=== PATIENT | male | born 1945 | race Caucasian/White ===

== ENCOUNTER 2018-07-19 09:54 | Day surgery (SDC) | payer MEDICARE, OTHER ==
[2018-07-19] MEDS ORDERED: LACTATED RINGERS 1,000 ML IV ONE (10:20)
[2018-07-19] MEDS ORDERED: LIDO GARGLE 30 ML BOTTLE ONE (11:27)
[2018-07-19] MEDS ORDERED: fentaNYL 250 MCG/5 ML VIAL IVP ONE (11:30)
[2018-07-19] MEDS ORDERED: MIDAZOLAM 2 MG/2 ML VIAL IVP ONE (11:30)
[2018-07-19] MEDS ORDERED: BENZOCAINE/TETRACAINE/BUTAMBEN 20 GM MM ONE (11:55)
[2018-07-19] MEDS ORDERED: LIDO GARGLE 30 ML BOTTLE PO ONE (11:55)
--- NOTE | 2018-07-19 12:46 | ANESTHESIA ---
Pre-Anesthesia VS, & Labs - Diagnosis gi bleed - Procedure egd, colonoscopy Vital Signs: Temp Pulse Resp BP Pulse Ox 37.4 C 80 14 106/74 97 07/19/18 12:31 07/19/18 12:31 07/19/18 12:31 07/19/18 12:31 07/19/18 12:31 Height 5 ft 4 in Weight (kg) 69.7 kg - NPO >8 hours Home Medications and Allergies Home Medications: Ambulatory Orders Aspirin 1 DAILY PM 07/19/18 Aspirin 1 DAILY PM 07/19/18 Allergies/Adverse Reactions: Allergies Allergy/AdvReac Type Severity Reaction Status Date / Time adhesive tape AdvReac Rash Verified 07/18/18 13:21 nabumetone [From Relafen] AdvReac Unknown Verified 07/18/18 13:20 Anes History & Medical History - Anesthetic History Anesthesia Complications: reports: No previous complications Family history of Anesthesia Complications: Denies Family history of Malignant Hyperthermia: Denies - Medical History Cardiovascular: reports: Other Pulmonary: reports: None Gastrointestinal: reports: None Urinary: reports: None Musculoskeletal: reports: Other Endocrine/Autoimmune: reports: None - Surgical History General: Colonoscopy, EGD Exam General: No acute distress Dental: WNL Mouth Openin Fingerbreadth Neck Mobility: Normal Mallampati classification: II Thyromental Distance: greater than 6 cm Respiratory: Lungs clear Cardiovascular: Other (irregular) Plan Anesthesia Type: MAC Consent for Procedure(s) Verified and Reviewed: Yes Code Status: Attempt Resuscitation ASA classification: 2-Mild systemic disease Is this case an emergency?: No
[2018-07-19 13:51] VITALS: BP 129/98
== END 2018-07-19 09:55 | disposition home or self-care (01) ==
LOC: SDS 09:54
PROVIDERS: ATTEND Surgery
PROC: 0DJD8ZZ Inspection of Lower Intestinal Tract, Via Natural or Artificial Opening Endoscopic (ICD-10-PCS; 2018-07-19)
PROC: 0DB98ZX Excision of Duodenum, Via Natural or Artificial Opening Endoscopic, Diagnostic (ICD-10-PCS; principal; 2018-07-19 11:30)
PROC: 0DB68ZX Excision of Stomach, Via Natural or Artificial Opening Endoscopic, Diagnostic (ICD-10-PCS; 2018-07-19 11:30)
DX: K29.50 Unspecified chronic gastritis without bleeding (principal); I49.9 Cardiac arrhythmia, unspecified; Z79.82 Long term (current) use of aspirin; Z80.0 Family history of malignant neoplasm of digestive organs; Z87.891 Personal history of nicotine dependence
CPT/HCPCS: 43239; 45378; 87081; A9270; J3010; J7120

== ENCOUNTER 2018-08-02 08:47 | Outpatient (CLI) | payer MEDICARE, OTHER | END 2018-08-02 08:48 | disposition home or self-care (01) | LOC: DI 08:47 | PROVIDERS: ATTEND Internal Medicine | DX: I49.3 Ventricular premature depolarization (principal); I34.0 Nonrheumatic mitral (valve) insufficiency | CPT/HCPCS: 93306 ==

== ENCOUNTER 2021-03-31 11:31 | Outpatient (CLI) | payer MEDICARE, OTHER ==
[2021-03-31 16:37] LABS: CALCIUM 9.3 mg/dL (8.5-10.3); CREATININE 1.1 mg/dL (0.6-1.2); POTASSIUM 3.9 mmol/L (3.5-5.0)
[2021-03-31 21:15] LABS: ESTIMATED AVERAGE GLUCOSE 134 mg/dL (70-100); HEMOGLOBIN A1c% 6.3 % (4.27-6.07)
== END 2021-03-31 23:59 | disposition home or self-care (01) ==
LOC: LAB.R 11:31
PROVIDERS: ATTEND Internal Medicine
DX: E11.9 Type 2 diabetes mellitus without complications (principal)
CPT/HCPCS: 80048; 83036

== ENCOUNTER 2021-06-02 16:15 | Emergency (ER) | payer MEDICARE, OTHER ==
[2021-06-02] MEDS ORDERED: ATROPINE ABBOJECT 0.5 MG/5 ML SYRINGE IVP STA (16:38)
[2021-06-02] MEDS ORDERED: ATROPINE ABBOJECT 1 MG/10 ML SYRINGE IVP STA (16:40)
--- NOTE | 2021-06-02 16:40 | ED Physician Documentation ---
History of Present Illness - Stated complaint Stated Complaint: LOW PULSE - Chief complaint Chief Complaint: Cardiac - History obtained from History obtained from: Patient, Family - History of Present Illness Timing: Today Pain level max: 0 Pain level now: 0 - Additonal information Additional information: Patient is a 76-year-old male who comes into the emergency department complaining of a low heart rate. This been ongoing intermittently for several weeks, but worsening. He had been on metoprolol and amiodarone for ventricular tachycardia. Initially they stopped the metoprolol and he felt like this improved his heart rate, his amiodarone has also been cut from 400 mg to 200 mg. He occasionally has palpitations in his chest, no chest pain. No shortness of breath. No syncope. Nothing makes it better or worse. Occasionally will feel lightheaded. Currently is feeling well. Review of Systems Ten Systems: 10 systems reviewed and negative Constitutional: denies: Fever, Chills Nose: denies: Rhinorrhea / runny nose, Congestion Throat: denies: Sore throat Respiratory: denies: Cough GI: denies: Nausea, Vomiting, Diarrhea Skin: denies: Rash Musculoskeletal: denies: Neck pain, Back pain Neurologic: denies: Headache PD PAST MEDICAL HISTORY - Past Medical History Past Medical History: Yes Cardiovascular: Other Respiratory: None Endocrine/Autoimmune: None GI: None : None HEENT: None Psych: None Musculoskeletal: Other - Past Surgical History Past Surgical History: Yes General: Colonoscopy, EGD - Present Medications Home Medications: Ambulatory Orders Medication Instructions Recorded Confirmed Amiodarone [Pacerone] 400 mg PO DAILY 06/02/21 06/02/21 Aspirin Chewable [St Enzo 81 mg PO DAILY 06/02/21 06/02/21 Aspirin] Atorvastatin Calcium 40 mg PO HS 06/02/21 06/02/21 Fenofibrate Nanocrystallized 1 cap PO DAILY 06/02/21 06/02/21 [Tricor] - Allergies Allergies/Adverse Reactions: Allergies Allergy/AdvReac Type Severity Reaction Status Date / Time adhesive tape AdvReac Rash Verified 06/02/21 16:31 nabumetone [From Relafen] AdvReac Unknown Verified 06/02/21 16:31 - Social History Does the pt smoke?: No Smoking Status: Never smoker PD ED PE NORMAL - Vitals Vital signs reviewed: Yes - General General: Alert and oriented X 3, No acute distress - HEENT HEENT: Moist mucous membranes - Neck Neck: Supple, no meningeal sign, No JVD, No bruit - Cardiac Cardiac: No murmur, Other (Irregular) - Respiratory Respiratory: No respiratory distress, Clear bilaterally - Abdomen Abdomen: Soft, Non tender, Non distended - Back Back: No spinal TTP - Derm Derm: Warm and dry - Extremities Extremities: No edema - Neuro Neuro: Alert and oriented X 3 - Psych Psych: Normal mood, Normal affect Results - Vitals Vitals: Vital Signs - 24 hr 06/02/21 06/02/21 06/02/21 16:26 16:32 16:58 Temperature 36.9 C Heart Rate 36 L 47 L 53 L Respiratory 14 10 L 16 Rate Blood Pressure 159/74 H 144/83 H 144/83 H O2 Saturation 99 100 97 06/02/21 06/02/21 06/02/21 17:05 17:37 18:19 Temperature Heart Rate 51 L 47 L 47 L Respiratory 18 17 22 Rate Blood Pressure 119/80 123/71 110/66 O2 Saturation 97 95 97 06/02/21 06/02/21 06/02/21 18:43 19:00 19:30 Temperature Heart Rate 51 L 47 L 46 L Respiratory 13 15 16 Rate Blood Pressure 114/62 122/66 114/65 O2 Saturation 100 98 99 Oxygen O2 Source Room air - EKG (time done) 1624 Rate: Rate (enter#) (43) Rhythm: Other (junctional rhythm) Intervals: Prolonged QT QRS: Normal Ischemia: Non specific changes - Labs Labs: Laboratory Tests 06/02/21 06/02/21 06/02/21 16:23 16:23 16:23 WBC 5.4 RBC 4.94 Hgb 16.8 Hct 50.2 MCV 101.6 H MCH 34.0 H MCHC 33.5 RDW 13.5 Plt Count 164 MPV 9.4 Neut # (Auto) 3.4 Lymph # (Auto) 1.2 L York # (Auto) 0.6 Eos # (Auto) 0.1 Baso # (Auto) 0.0 Absolute Nucleated RBC 0.00 Nucleated RBC % 0.0 Sodium 139 Potassium 3.8 Chloride 101 Carbon Dioxide 27 Anion Gap 11.0 BUN 28 H Creatinine 1.2 Estimated GFR (MDRD) 59 L Glucose 134 H Calcium 9.3 Phosphorus 3.7 Magnesium 2.4 Total Bilirubin 0.8 AST 29 ALT 46 Alkaline Phosphatase 25 L Troponin I High Sens 6.9 Total Protein 6.6 L Albumin 4.3 Globulin 2.3 Albumin/Globulin Ratio 1.9 Lipase 40 Nasal Adenovirus (PCR) Nasal B. parapertussis DNA (PCR) Nasal Coronavir 229E PCR Nasal Coronavir HKU1 PCR Nasal Coronavir NL63 PCR Nasal Coronavir OC43 PCR Nasal Enterovir/Rhinovir PCR Nasal Influenza B PCR Nasal Influenza A PCR Nasal Parainfluen 1 PCR Nasal Parainfluen 2 PCR Nasal Parainfluen 3 PCR Nasal Parainfluen 4 PCR Nasal RSV (PCR) Nasal B.pertussis DNA PCR Nasal C.pneumoniae (PCR) Jordan Human Metapneumo PCR Nasal M.pneumoniae (PCR) Nasal SARS-CoV-2 (PCR) 06/02/21 16:53 WBC RBC Hgb Hct MCV MCH MCHC RDW Plt Count MPV Neut # (Auto) Lymph # (Auto) York # (Auto) Eos # (Auto) Baso # (Auto) Absolute Nucleated RBC Nucleated RBC % Sodium Potassium Chloride Carbon Dioxide Anion Gap BUN Creatinine Estimated GFR (MDRD) Glucose Calcium Phosphorus Magnesium Total Bilirubin AST ALT Alkaline Phosphatase Troponin I High Sens Total Protein Albumin Globulin Albumin/Globulin Ratio Lipase Nasal Adenovirus (PCR) NOT DETECTED Nasal B. parapertussis DNA (PCR) NOT DETECTED Nasal Coronavir 229E PCR NOT DETECTED Nasal Coronavir HKU1 PCR NOT DETECTED Nasal Coronavir NL63 PCR NOT DETECTED Nasal Coronavir OC43 PCR DETECTED A Nasal Enterovir/Rhinovir PCR NOT DETECTED Nasal Influenza B PCR NOT DETECTED Nasal Influenza A PCR NOT DETECTED Nasal Parainfluen 1 PCR NOT DETECTED Nasal Parainfluen 2 PCR NOT DETECTED Nasal Parainfluen 3 PCR NOT DETECTED Nasal Parainfluen 4 PCR NOT DETECTED Nasal RSV (PCR) NOT DETECTED Nasal B.pertussis DNA PCR NOT DETECTED Nasal C.pneumoniae (PCR) NOT DETECTED Jordan Human Metapneumo PCR NOT DETECTED Nasal M.pneumoniae (PCR) NOT DETECTED Nasal SARS-CoV-2 (PCR) NOT DETECTED - Rads (name of study) Chest x-ray Radiology: Final report received, EMP read contemporaneously, See rad report (No acute abnormality) PD MEDICAL DECISION MAKING - ED course Complexity details: reviewed results, re-evaluated patient, considered differential, d/w patient, d/w lead consultant ED course: Patient with a junctional bradycardia. Intermittently symptomatic. He did improve his heart rate with atropine, transient. He is hemodynamically stable. External pacer pads were applied. Discussed the case with Dr. Loving, cardiology at the [facility] at 1719, he states that they do not have any beds available for this patient and so cannot accept him. Recommend that we ca ll elsewhere. Discussed the case with Dr. Henderson, cardiology at [facility]. Spoke with him at approximately 1845. They do not have an EP clinical ob to do a pacemaker tomorrow. Recommend transfer. Discussed the case with Dr. Lancaster at 1925, cardiology at [facility] in [place] who recommends admission to the hospitalist and he will see the patient there. Discussed the case with Dr. Guzmán, hospitalist at 1940, graciously accepts in transfer. Patient continues to be hemodynamically stable here. COBRA forms completed. Patient will be transferred. This document was made in part using voice recognition software. While efforts are made to proofread this document, sound alike and grammatical errors may occur. Departure - Departure Disposition: 02 Transfer Acute Care Hosp Clinical Impression: Junctional bradycardia Condition: Stable
[2021-06-02 16:47] LABS: BASOPHILS % (AUTO) 0.7 %; EOSINOPHILS # (AUTO) 0.1 10^3/uL (0.0-0.7); EOSINOPHILS % (AUTO) 2.6 %; HCT - HEMATOCRIT 50.2 % (42.0-52.0); HGB - HEMOGLOBIN 16.8 g/dL (14.0-18.0); LYMPHOCYTES # (AUTO) 1.2 10^3/uL (1.5-3.5); LYMPHOCYTES % (AUTO) 22.2 %; MEAN CORPUSCULAR HGB CONC 33.5 g/dL (32.0-36.0); MEAN CORPUSCULAR VOLUME 101.6 fL (80.0-94.0); MEAN PLATELET VOLUME 9.4 fL (7.4-11.4); MONOCYTES # (AUTO) 0.6 10^3/uL (0.0-1.0); MONOCYTES % (AUTO) 10.7 %; NEUTROPHILS # (AUTO) 3.4 10^3/uL (1.5-6.6); NEUTROPHILS % (AUTO) 63.6 %; PLT - PLATELET COUNT 164 10^3/uL (130-450); RED BLOOD COUNT 4.94 10^6/uL (4.70-6.10); RED CELL DISTRIBUTION WIDTH 13.5 % (12.0-15.0); WHITE BLOOD COUNT 5.4 x10^3/uL (4.8-10.8)
[2021-06-02 16:57] LABS: ALBUMIN 4.3 g/dL (3.2-5.5); ALBUMIN/GLOBULIN RATIO 1.9 (1.0-2.2); BILIRUBIN,TOTAL 0.8 mg/dL (0.2-1.0); CALCIUM 9.3 mg/dL (8.5-10.3); CREATININE 1.2 mg/dL (0.6-1.2); MAGNESIUM 2.4 mg/dL (1.7-2.8); PHOSPHORUS 3.7 mg/dL (2.5-4.6); POTASSIUM 3.8 mmol/L (3.5-5.0); TOTAL PROTEIN 6.6 g/dL (6.7-8.2)
--- NOTE | 2021-06-02 16:57 | XRAY Report ---
PROCEDURE: Chest 1 View X-Ray INDICATIONS: chest pain TECHNIQUE: One view of the chest was acquired. COMPARISON: None FINDINGS: Surgical changes and devices: None. Lungs and pleura: No pleural effusions or pneumothorax. Lungs are clear. Mediastinum: Mediastinal contours appear normal. Heart size is enlarged Bones and chest wall: No suspicious bony lesions. Overlying soft tissues appear unremarkable. IMPRESSION: No acute pulmonary process. Reviewed by: Angelique Melvin MD on 06/02/2021 4:56 PM PDT Approved by: Angelique Melvin MD on 06/02/2021 4:56 PM PDT Station ID: [id number]
[2021-06-02 17:50] LABS: B. PARAPERTUSSIS- RESP PCR PAN NOT DETECTED; B. PERTUSSIS- RESP PCR PANEL NOT DETECTED; C. PNEUMONIAE- RESP PCR PANEL NOT DETECTED; CORONAVIRUS 229E-RESP PCR NOT DETECTED; CORONAVIRUS HKU1-RESP PCR NOT DETECTED; CORONAVIRUS NL63-RESP PCR NOT DETECTED; CORONAVIRUS OC43-RESP PCR DETECTED; HUMAN METAPNEUMOVIRUS NOT DETECTED; INFLUENZA A- RESP PCR PANEL NOT DETECTED; INFLUENZA B - RESP PCR PANEL NOT DETECTED; PARAINFLUENZA VIRUS 1 NOT DETECTED; PARAINFLUENZA VIRUS 2 NOT DETECTED; PARAINFLUENZA VIRUS 3 NOT DETECTED; PARAINFLUENZA VIRUS 4 NOT DETECTED; RHINOVIRUS/ENTEROVIRUS NOT DETECTED; RSV- RESP PCR PANEL NOT DETECTED; SARS-CoV-2 -RESP PCR PANEL NOT DETECTED
[2021-06-02 17:51] LABS: M. PNEUMONIAE- RESP PCR PANEL NOT DETECTED
[2021-06-02 20:14] VITALS: BP 123/70
== END 2021-06-02 20:30 | disposition short-term general hospital (02) ==
LOC: ED 16:15
DX: R00.1 Bradycardia, unspecified (principal)
CPT/HCPCS: 36415; 80053; 83690; 83735; 84100; 84484; 85025; 87633; 92953; 93005; 99285

== ENCOUNTER 2021-06-02 20:32 | Outpatient (CLI) | payer MEDICARE, OTHER | END 2021-06-02 20:33 | disposition short-term general hospital (02) | LOC: EMS 20:32 | PROVIDERS: ATTEND Emergency Medicine | DX: R00.1 Bradycardia, unspecified (principal) | CPT/HCPCS: A0425; A0426 ==

== ENCOUNTER 2021-06-11 08:00 | Outpatient (CLI) | payer MEDICARE, OTHER ==
[2021-06-11 18:36] LABS: THYROID STIMULATING HORMONE 4.93 uIU/mL (0.34-5.60)
[2021-06-11 18:39] LABS: FREE T4 (FREE THYROXINE) 1.06 ng/dL (0.58-1.64)
== END 2021-06-11 23:59 | disposition home or self-care (01) ==
LOC: LAB.R 08:00
PROVIDERS: ATTEND Internal Medicine
DX: R00.1 Bradycardia, unspecified (principal); E03.9 Hypothyroidism, unspecified
CPT/HCPCS: 84439; 84443

== ENCOUNTER 2021-12-02 08:44 | Outpatient (CLI) | payer MEDICARE, OTHER | END 2021-12-02 08:45 | disposition home or self-care (01) | LOC: RT 08:44 | PROVIDERS: ATTEND Internal Medicine Cardiovascular Disease | DX: I47.20 Ventricular tachycardia, unspecified (principal) | CPT/HCPCS: 93005 ==

== ENCOUNTER 2022-12-24 13:52 | Outpatient (CLI) | payer MEDICARE, OTHER ==
--- NOTE | 2022-12-24 15:28 | XRAY Report ---
PROCEDURE: Hand 3 View LT INDICATIONS: HAND PAIN TECHNIQUE: 3 views of the hand(s) acquired. COMPARISON: None. FINDINGS: Bones: No fractures or dislocations. No suspicious bony lesions. Moderate osteoarthritic changes at the first carpometacarpal/triscaphe joint at the base of the thumb with joint space narrowing and meyer bchondral sclerosis and osteophyte formation. Chondrocalcinosis of the wrist near the distal pole of the scaphoid and triquetral bones. Soft tissues: No suspicious soft tissue calcifications or masses. IMPRESSION: Moderate osteoarthritic changes of the base of the thumb. Chondrocalcinosis of the wrist. Reviewed by: Deepak Hale MD on 12/24/2022 2:26 PM AKST Approved by: Deepak Hale MD on 12/24/2022 2:26 PM AKST Station ID: [id number]
== END 2022-12-24 13:53 | disposition home or self-care (01) ==
LOC: DI 13:52
PROVIDERS: ATTEND Internal Medicine
DX: M18.12 Unilateral primary osteoarthritis of first carpometacarpal joint, left hand (principal); M11.232 Other chondrocalcinosis, left wrist

== ENCOUNTER 2023-02-04 06:47 | Outpatient (CLI) | payer MEDICARE, OTHER | END 2023-02-04 06:48 | disposition home or self-care (01) | LOC: LAB 06:47 | PROVIDERS: ATTEND Orthopaedic Surgery | DX: R22.32 Localized swelling, mass and lump, left upper limb (principal) | CPT/HCPCS: 36415; 82565 ==

== ENCOUNTER 2023-02-04 08:00 | Outpatient (CLI) | payer MEDICARE, OTHER ==
[~2023-02-04 08:00] MED LIST: GADOTERATE MEGLUMINE 2.5 MMOL/5 ML VIAL ONE; GADOTERATE MEGLUMINE 5 MMOL/10 ML VIAL ONE
[2023-02-04] MEDS ORDERED: GADOTERATE MEGLUMINE 5 MMOL/10 ML VIAL IVP ONE (08:56)
--- NOTE | 2023-02-07 12:36 | MRI Report ---
PROCEDURE: HAND W/WO - LT INDICATIONS: MASS OF LEFT THUMB CONTRAST: CLARISCAN 13.4 ml TECHNIQUE: Noncontrast coronal T1 spin echo and T2 fast spin echo with fat saturation, axial proton density fast spin echo and T2 fast spin echo with fat saturation, axial T1 spin echo with fat saturation, sagitta l T1 spin echo and STIR through the hand and fingers. Post-contrast axial, coronal, and sagittal T1 spin echo through the hand and fingers. COMPARISON: Left hand radiographs 12/24/2022 FINDINGS: Image quality: Excellent. Bones: The bones are normally aligned, without marrow contusions or fractures. No intra-osseous les ions. Full-thickness cartilage loss is seen at the 1st carpal metacarpal joint with subchondral cyst ic changes and marginal osteophyte formation and mild remodeling of the articular surfaces. Mild dege nerative changes in the triscaphe and radiocarpal joints. Degenerative cystic changes are present in the scaphoid and capitate. Soft tissues: A lobular cyst is seen at the dorsal aspect of the 1st carpometacarpal joint measuring 14 x 12 x 9 mm. There is a full-thickness defect within the central triangular fibrocartilage disc. The flexor and extensor tendons throughout the hand and wrist appear to be intact. The visualized mus culature is intact. IMPRESSION: 1.Lobular ganglion cyst measuring up to 14 mm is seen at the dorsal aspect of the 1st carpometacarpal joint and extending the subcutaneous tissues. 2.Severe 1st carpometacarpal joint osteoarthrosis. Mild triscaphe osteoarthrosis. 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 Reviewed by: Antonio Dsouza MD on 02/07/2023 12:34 PM PST Approved by: Antonio Dsouza MD on 02/07/2023 12:34 PM PST Station ID: [id number]
== END 2023-02-04 23:59 | disposition home or self-care (01) ==
LOC: DI 08:00
PROVIDERS: ATTEND Orthopaedic Surgery
DX: M67.442 Ganglion, left hand (principal); M18.12 Unilateral primary osteoarthritis of first carpometacarpal joint, left hand; M19.032 Primary osteoarthritis, left wrist; S63.502D Unspecified sprain of left wrist, subsequent encounter; R22.32 Localized swelling, mass and lump, left upper limb
CPT/HCPCS: 36415; 73220; 82565; A9575